=== PATIENT | female | born 1970 | race Caucasian/White ===

== ENCOUNTER 2025-11-02 11:00 | Outpatient (AMB) | payer MEDICARE, SELFPAY ==
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
[2025-11-02 11:13] VITALS: BP 122/82; BMI 28.3
== END 2025-11-02 13:10 | disposition home or self-care (01) ==
LOC: HO.HWSM 11:00
PROVIDERS: Visit Provider Advanced Practice Midwife
DX: Z01.419 Encounter for gynecological examination (general) (routine) without abnormal findings (principal); Z12.39 Encounter for other screening for malignant neoplasm of breast; Z12.4 Encounter for screening for malignant neoplasm of cervix; N93.8 Other specified abnormal uterine and vaginal bleeding; N95.1 Menopausal and female climacteric states
CPT/HCPCS: 99386; 99459

== ENCOUNTER 2025-11-02 11:00 | Outpatient (REF) | payer OTHER, SELFPAY ==
[2025-11-02 16:59] LABS: Bacterial Vaginosis PCR POSITIVE (Negative); Candida Group PCR NOT DETECTED (Not Detect); Candida glab krusei PCR NOT DETECTED (Not Detect); Trichomonas vaginalis PCR NOT DETECTED (Not Detect)
[2025-11-02 17:30] LABS: CT PCR NOT DETECTED (Not Detect.); NG PCR NOT DETECTED (Not Detect.)
== END 2025-11-02 11:01 | disposition home or self-care (01) ==
LOC: HO.LNP 11:00
PROVIDERS: Visit Provider Advanced Practice Midwife
DX: Z01.419 Encounter for gynecological examination (general) (routine) without abnormal findings (principal); Z98.51 Tubal ligation status; N93.8 Other specified abnormal uterine and vaginal bleeding; N92.4 Excessive bleeding in the premenopausal period; D25.9 Leiomyoma of uterus, unspecified; N83.201 Unspecified ovarian cyst, right side; M25.50 Pain in unspecified joint; E16.2 Hypoglycemia, unspecified; R25.2 Cramp and spasm; Z11.51 Encounter for screening for human papillomavirus (HPV); Z20.2 Contact with and (suspected) exposure to infections with a predominantly sexual mode of transmission; Z12.39 Encounter for other screening for malignant neoplasm of breast
CPT/HCPCS: 81515; 87491; 87591; 87626; 88175; 99386